=== PATIENT | female | born 1970 | race Caucasian/White ===

== ENCOUNTER → 2017-01-30 | Outpatient (CLI) | payer OTHER ==
--- NOTE | 2017-01-31 08:07 | US ---
EXAMINATION TYPE: US thyroid st tissue head/neck DATE OF EXAM: 01/30/2017 COMPARISON: 05/23/2016 CLINICAL HISTORY: E04.1 Thyroid nodule. Patient stated feels right neck thyroid enlargement with pres sure/choking sensation. GLAND SIZE: Right Lobe: 6.0 x 4.1 x 3.3 cm Overall Parenchyma: heterogenous Left Lobe: 4.9 x 1.6 x 1.3 cm Overall Parenchyma: homogeneous Isthmus Thickness: 0.3 cm NODULES RIGHT: # of nodules measured on right: 1 1. 5.2 x 3.9 x 3.2 cm echogenic mixed nodule at the mid pole with well-defined margins. This nodule is wider than tall and shows intranodular vascularity. Prior size: 5.0 x 2.8 x 3.5 cm LEFT: # of nodules measured on left: 2 1. 0.5 X 0.3 x 0.3 cm hypoechoic mixed nodule at the lower pole with well-defined margins. This no dule is wide as is tall. Prior size: 0.5 x 0.3 x 0.3 cm 2. 0.6 X 0.5 x 0.5 cm hypoechoic mixed nodule at the mid pole with well-defined margins. This nodule is wide as is tall and shows intranodular vascularity. Prior size: 0.6 x 0.5 x 0.5 cm ISTHMUS: # of nodules measured in the isthmus: 1 1. 0.9 X 0.7 x 0.5 cm isoechoic solid nodule at the right mid pole with well-defined margins. Thi s nodule is wider than tall and shows no intranodular vascularity. Prior size: 0.5 x 0.7 x 0.5 cm Bilateral neck scanned, no evidence of lymphadenopathy. IMPRESSION: Multinodular thyroid. Thyromegaly and findings suggestive of thyroiditis. Single nodules increased in size from the previous exam within the isthmus now measuring 9 mm. Dominant nodule right lobe measur ing 5.2 cm also slightly increased in size.
== END ==
LOC: RADUSWWP 16:48
PROVIDERS: ATTEND Otolaryngology
DX: E04.2 Nontoxic multinodular goiter (principal)
CPT/HCPCS: 76536

== ENCOUNTER → 2017-08-14 | Outpatient (CLI) | payer OTHER ==
--- NOTE | 2017-08-14 13:36 | US ---
EXAMINATION TYPE: US thyroid st tissue head/neck DATE OF EXAM: 08/14/2017 COMPARISON: Prior thyroid ultrasound January 30, 2017 CLINICAL HISTORY: E04.1 thyroid nodule. GLAND SIZE: Right Lobe: 6.3 x 3.7 x 4.7 cm Overall Parenchyma: heterogenous Left Lobe: 5.1x 1.41.6 cm Overall Parenchyma: homogeneous Isthmus Thickness: 0.5 cm NODULES RIGHT: # of nodules measured on right: 1 1. 5.6 X 3.4 x 4.2 cm isoechoic mixed nodule at the mid pole with well-defined margins. This nodul e is wider than tall and shows intranodular vascularity. Prior size: 5.2 x 3.9 x 3.2 cm LEFT: # of nodules measured on left: 2 1. 0.6 X 0.4 x 0.5 cm hypoechoic solid nodule at the mid pole with well-defined margins. This nodu le is wider than tall and shows intranodular vascularity. Prior size: 0.6 x 0.5 x 0.5 cm 2. 0.5 X 0.4 x 0.3 cm isoechoic solid nodule at the lower pole with well-defined margins. This nodu le is taller than wide and shows intranodular vascularity. Prior size: 0.5 x 0.3 x 0.3 cm ISTHMUS: # of nodules measured in the isthmus: 1 1. 1.0 X 0.5 x 0.8 cm isoechoic solid nodule at the mid pole with well-defined margins. This nodul e is wider than tall and shows intranodular vascularity. Prior size: 0.9 x 0.7 x 0.5 cm Bilateral neck scanned, no evidence of lymphadenopathy. There is redemonstration of large right thyroid with dominant solid and cystic 5.6 cm nodule that has been sampled in the past. A few smaller nodules in isthmus and left thyroid are redemonstrated witho ut significant interval change. IMPRESSION: Overall stable findings, dominant mixed nodule which has been biopsied in right thyroid redemonstrate d, no new greater than 1 cm solid or cystic nodules are seen.
== END | disposition home or self-care (01) ==
LOC: RADUSWWP 12:02
PROVIDERS: ATTEND Otolaryngology
DX: E04.2 Nontoxic multinodular goiter (principal)
CPT/HCPCS: 76536

== ENCOUNTER → 2018-07-02 | Outpatient (CLI) | payer BC ==
--- NOTE | 2018-07-05 07:03 | MM ---
Reason for exam: screening (asymptomatic). Last mammogram was performed 1 year and 1 month ago. History: Patient had first child at age 34. Family history of breast cancer in paternal grandmother. Retro-pectoral saline implants in both breasts, 1996. Taking hormonal contraceptives for 19 years beginning at age 15. Physical Findings: A clinical breast exam by your physician is recommended on an annual basis and results should be correlated with mammographic findings. MG Screening Mammo Implant/CAD Bilateral CC, MLO, and ID view(s) were taken. Prior study comparison: June 12, 2017, bilateral MG screening mammo implant/CAD. June 06, 2016, bilateral MG screening mammo implant/CAD. There are scattered fibroglandular densities. No suspicious calcifications are seen. Bilateral implants are intact. No significant changes when compared with prior studies. ASSESSMENT: Benign, BI-RAD 2 RECOMMENDATION: Routine screening mammogram of both breasts in 1 year.
== END | disposition home or self-care (01) ==
LOC: RADMAMWWP 12:34
PROVIDERS: ATTEND Family Medicine
DX: Z12.31 Encounter for screening mammogram for malignant neoplasm of breast (principal); Z80.3 Family history of malignant neoplasm of breast; Z98.82 Breast implant status
CPT/HCPCS: 77067

== ENCOUNTER → 2018-09-10 | Outpatient (CLI) | payer BC ==
--- NOTE | 2018-09-10 14:38 | US ---
EXAMINATION TYPE: US thyroid st tissue head/neck DATE OF EXAM: 09/10/2018 COMPARISON: US CLINICAL HISTORY: E04.1 Thyroid nodule. F/U previous GLAND SIZE: Right Lobe: 6.5 x 3.3 x 4.2 cm Overall Parenchyma: heterogenous Left Lobe: 4.7 x 1.4 x 1.3 cm Overall Parenchyma: homogeneous Isthmus Thickness: 0.3 cm NODULES RIGHT: # of nodules measured on right: 1 1. 5.6 X 3.1 x 3.9 cm mixed nodule at the mid pole with well-defined margins; This nodule is wider than tall and shows intranodular vascularity. Prior size: 5.6 x 3.4 x 4.2 cm LEFT: # of nodules measured on left: 2 1. 0.6 X 0.5 x 0.5 cm hypoechoic solid nodule at the mid pole with well-defined margins; This nodul e is wider than tall and shows intranodular vascularity. Prior size: 0.6 x 0.4 x 0.5 cm 2. 0.5 X 0.5 x 0.3 cm hypoechoic solid nodule at the mid pole with well-defined margins; This nodul e is wider than tall and shows intranodular vascularity. Prior size: 0.5 x 0.4 x 0.3 cm ISTHMUS: # of nodules measured in the isthmus: 1 1. 1.2 X 0.6 x 0.9 cm isoechoic solid nodule with well-defined margins; This nodule is wider than tall and shows intranodular vascularity. Prior size: 1.0 x 0.5 x 0.8 cm Bilateral neck scanned, no evidence of lymphadenopathy. Stable nodules. IMPRESSION: 1. Stable complex thyroid nodules.
== END | disposition home or self-care (01) ==
LOC: RADUSWWP 14:07
PROVIDERS: ATTEND Otolaryngology
DX: E04.2 Nontoxic multinodular goiter (principal)
CPT/HCPCS: 76536

== ENCOUNTER → 2019-09-02 | Outpatient (CLI) | payer OTHER ==
--- NOTE | 2019-09-05 09:49 | MM ---
Reason for exam: screening (asymptomatic). Last mammogram was performed 1 year and 2 months ago. History: Patient had first child at age 34. Family history of breast cancer in paternal grandmother. Retro-pectoral saline implants in both breasts, 1996. Taking hormonal contraceptives for 19 years beginning at age 15. Physical Findings: A clinical breast exam by your physician is recommended on an annual basis and results should be correlated with mammographic findings. MG Screening Mammo Implant/CAD Bilateral CC, MLO, and ID view(s) were taken. Prior study comparison: July 02, 2018, bilateral MG screening mammo implant/CAD. June 12, 2017, bilateral MG screening mammo implant/CAD. There are scattered fibroglandular densities. Bilateral implants are intact. No significant changes when compared with prior studies. ASSESSMENT: Benign, BI-RAD 2 RECOMMENDATION: Routine screening mammogram of both breasts in 1 year.
== END | disposition home or self-care (01) ==
LOC: RADMAMWWP 09:12
PROVIDERS: ATTEND Family Medicine
DX: Z12.31 Encounter for screening mammogram for malignant neoplasm of breast (principal); Z80.3 Family history of malignant neoplasm of breast; Z98.82 Breast implant status
CPT/HCPCS: 77067

== ENCOUNTER → 2019-09-23 | Outpatient (CLI) | payer OTHER ==
--- NOTE | 2019-09-23 12:14 | US ---
EXAMINATION TYPE: US thyroid st tissue head/neck DATE OF EXAM: 09/23/2019 COMPARISON: Prior ultrasound 09/10/2018 CLINICAL HISTORY: E04.1 thyroid nodule. GLAND SIZE: Right Lobe: 6.5 x 3.7 x 3.9 cm Overall Parenchyma: homogenous Left Lobe: 5.2 x 1.4 x 1.5 cm Overall Parenchyma: homogeneous Isthmus Thickness: 0.7 cm NODULES RIGHT: # of nodules measured on right: 1 1. 5.6 X 3.2 x 3.9 cm isoechoic mixed nodule at the mid pole with well-defined margins. This nodul e is wider than tall and shows intranodular vascularity. Prior size: 5.6 x 3.1 x 3.9 cm LEFT: # of nodules measured on left: 2 1. 0.6 X 0.5 x 0.5 cm hypoechoic solid nodule at the mid pole with well-defined margins. This nodu le is wider than tall and shows intranodular vascularity. Prior size: 0.6 x 0.5 x 0.5 cm 2. 0.5 X 0.3 x 0.5 cm hypoechoic solid nodule at the mid pole with well-defined margins. This nodul e is wider than tall and shows intranodular vascularity. Prior size: 0.5 x 0.5 x 0.3 cm ISTHMUS: # of nodules measured in the isthmus: 1 1. 1.1 X 0.7 x 0.9 cm isoechoic solid nodule at the mid pole with well-defined margins. This nodul e is wider than tall and shows intranodular vascularity. Prior size: 1.2 x 0.6 x 0.9 cm Bilateral neck scanned, no evidence of lymphadenopathy. IMPRESSION: Dominant nodular focus within the right lobe of the gland shows predominantly cystic appearance as on prior. Solid nodule within the isthmus measures 1.1 cm. Subcentimeter left lobe thyroid nodules. Exa m is essentially stable.
== END | disposition home or self-care (01) ==
LOC: RADUSWWP 08:50
PROVIDERS: ATTEND Otolaryngology
DX: E04.2 Nontoxic multinodular goiter (principal)
CPT/HCPCS: 76536

== ENCOUNTER → 2020-05-03 | Outpatient (CLI) | payer OTHER ==
--- NOTE | 2020-05-04 08:50 | US ---
EXAMINATION TYPE: US thyroid st tissue head/neck DATE OF EXAM: 05/03/2020 COMPARISON: CLINICAL HISTORY: E04.1 Thyroid Nodule. FU thyroid nodules. No thyroid meds. GLAND SIZE: Right Lobe: 5.8 x 4.1 x 3.2 cm Overall Parenchyma: homogenous Left Lobe: 4.7 x 1.6 x 1.3 cm Overall Parenchyma: homogeneous Isthmus Thickness: 0.8 cm NODULES RIGHT: # of nodules measured on right: 1 1. 5.5 X 3.6 x 3.0 cm mixed nodule at the mid pole with well-defined margins. This nodule is wider than tall and shows intranodular vascularity. Large amount of cystic spaces within the right thyroid nodule are again noted Prior size: 5.6 x 3.2 x 3.9 cm LEFT: # of nodules measured on left: 2 1. 0.6 X 0.6 x 0.5 cm hypoechoic nodule at the mid pole with well-defined margins. This nodule is wider than tall and shows intranodular vascularity. Prior size: 0.6 x 0.5 x 0.5 cm 2. 0.5 X 0.4 x 0.4 cm hypoechoic nodule at the mid pole with well-defined margins. This nodule is w ider as tall and shows intranodular vascularity. Prior size: 0.5 x 0.5 x 0.3 cm ISTHMUS: # of nodules measured in the isthmus: 1 1. 1.2 X 1.0 x 0.7 cm mixed nodule with well-defined margins. This nodule is wider than tall and shows intranodular vascularity. Prior size: 1.1 x 0.7 x 0.9 cm Bilateral neck scanned, no evidence of lymphadenopathy. IMPRESSION: Right thyroid nodule TR 2, not suspicious. Subcentimeter left-sided thyroid nodules. Isthmus nodule T R 3, mildly suspicious, follow-up to assess for stability
== END | disposition home or self-care (01) ==
LOC: RADUSWWP 15:27
PROVIDERS: ATTEND Otolaryngology
DX: E04.1 Nontoxic single thyroid nodule (principal)
CPT/HCPCS: 76536

== ENCOUNTER 2020-08-15 18:18 | Emergency (ER) | payer OTHER ==
[2020-08-15 18:34] VITALS: PULSE 77; RESP 18
[2020-08-15] MEDS ORDERED: PROPARACAINE 0.5% OPHTH DROPS 15 ML BTL LEFT EYE STA (19:14)
--- NOTE | 2020-08-15 19:52 | ED ---
Eye Problem HPI - General Chief complaint: Eye Problems Stated complaint: Eye Problems Time Seen by Provider: 08/15/20 19:03 Source: patient Mode of arrival: ambulatory Limitations: no limitations - History of Present Illness Initial comments: 50-year-old female patient presents to the emergency department today for evaluation of visual disturbance to the left eye. Patient states starting on Thursday she developed a cloudiness over her vision. States her couple days she had 2 areas that appeared to be like lightning bolts. States this lasted for a couple days and resolve that she developed floaters in her vision. States it looks like tiny gnats flying around the room. She denies any pain or pressure to the eye. Denies history of hypertension, stroke, or diabetes. Denies ever having similar type symptoms. Patient denies any recent rash, fever, chills, cough, shortness of breath, chest pain, abdominal pain, nausea, vomiting, diarrhea, constipation, back pain, numbness, tingling, dizziness, weakness, hematuria, dysuria, urinary urgency, urinary frequency, or any other complaints. - Related Data Home Medications Medication Instructions Recorded Confirmed Non Formulary Drug 1 each PO ONCE 11/10/14 11/17/14 medroxyPROGESTERone [Depo-Provera] 150 mg IM ONCE 11/10/14 11/17/14 Allergies Allergy/AdvReac Type Severity Reaction Status Date / Time No Known Allergies Allergy Verified 08/15/20 18:34 Review of Systems ROS Statement: Those systems with pertinent positive or pertinent negative responses have been documented in the HPI. ROS Other: All systems not noted in ROS Statement are negative. Past Medical History Past Medical History: Thyroid Disorder Additional Past Medical History / Comment(s): Thyroid nodules History of Any Multi-Drug Resistant Organisms: None Reported Past Surgical History: Section Additional Past Surgical History / Comment(s): 2003 & 2006 Past Anesthesia/Blood Transfusion Reactions: No Reported Reaction Past Psychological History: Anxiety Smoking Status: Never smoker Past Alcohol Use History: None Reported Past Drug Use History: None Reported - Past Family History Father Family Medical History: No Reported History General Exam Limitations: no limitations General appearance: alert, in no apparent distress, other (Physical well- developed, well-nourished adult female patient in no acute distress. Vital signs upon presentation are temperature 98.3F, pulse 77, respirations 18, blood pressure 121/79, pulse ox 98% on room air.) Eye exam: Present: normal appearance, PERRL, EOMI. Absent: scleral icterus, conjunctival injection, nystagmus, periorbital swelling Expanded Eyelids: Normal Inspection: Right Pupils: Regular, Round: Left, Reactive: Left Sclera/Conjunctival: Normal Inspection: Left Anterior chamber: Normal Inspection: Left Posterior chamber: Normal Inspection: Left Visual acuity (R) = 20/: 30 Visual acuity (L) = 20/: 25 With correction: No IOP (L) in mmH IOP measured with: Tonopen ENT exam: Present: normal exam, normal oropharynx, mucous membranes moist Respiratory exam: Present: normal lung sounds bilaterally. Absent: respiratory distress, wheezes, rales, rhonchi, stridor Cardiovascular Exam: Present: regular rate, normal rhythm, normal heart sounds. Absent: systolic murmur, diastolic murmur, rubs, gallop, clicks Neurological exam: Present: alert, oriented X3, CN II-XII intact Psychiatric exam: Present: normal affect, normal mood Skin exam: Present: warm, dry, intact, normal color. Absent: rash Course Vital Signs 08/15/20 18:31 Temperature 98.3 F Pulse Rate 77 Respiratory 18 Rate Blood Pressure 121/79 O2 Sat by Pulse 98 Oximetry Medical Decision Making - Medical Decision Making 50-year-old female patient presented to the emergency department today for evaluation of visual disturbance of the left eye. She reported flashes and floaters. Physical examination was unremarkable. I did perform limited funduscopic examination of the left thigh which appeared unremarkable. Pressure to the left eye was between 10 and 12. Visual acuity is unremarkable. I did discuss the case with on-call ophthalmology Dr. Deras who will be able to follow up with patient in the office on Thursday. Patient was given strict return parameters to include specifically any acute change in her vision, a curtain over her vision, or snow globe effect type floaters. She agrees with this plan. Disposition Clinical Impression: Floaters in visual field Disposition: HOME SELF-CARE Condition: Good Instructions (If sedation given, give patient instructions): Blurred Vision (ED), Visual Floaters (ED) Additional Instructions: Called the psychologist developmental's office first thing Thursday morning for an appointment. Return to the emergency department immediately if he develop loss of vision, occurred vision, or sudden increase in the floaters. Return for any other new, worsening, or concerning symptoms. Is patient prescribed a controlled substance at d/c from ED?: No Referrals: Ferny Layton Jr, DO [Primary Care Provider] - 1-2 days Chanel Deras MD [STAFF PHYSICIAN] - 1-2 days Time of Disposition: 19:52
[2020-08-15 20:10] VITALS: BP 121/70; TEMP 98.2
== END 2020-08-15 20:00 | disposition home or self-care (01) ==
LOC: EC 18:18
DX: H43.392 Other vitreous opacities, left eye (principal); Z79.3 Long term (current) use of hormonal contraceptives
CPT/HCPCS: 99283

== ENCOUNTER → 2021-12-12 | Outpatient (CLI) | payer OTHER ==
--- NOTE | 2021-12-12 07:52 | US ---
EXAMINATION TYPE: US thyroid st tissue head/neck DATE OF EXAM: 12/12/2021 COMPARISON: Prior ultrasound May 03, 2020 CLINICAL HISTORY: E04.1 Thyroid nodule. Follow up thyroid nodules, tightness right neck GLAND SIZE: Right Lobe: 6.5 x 3.6 x 4.4 cm Overall Parenchyma: homogenous Left Lobe: 4.7 x 1.7 x 1.5 cm Overall Parenchyma: homogeneous Isthmus Thickness: 0.7 cm NODULES RIGHT: # of nodules measured on right: 1 1. 5.8 X 3.2 x 3.7 cm, mid , spongiform, hypoechoic nodule, which is wider than tall, with smooth m argins, without echogenic foci. Prior size: 5.5 x 3.0 x 3.6 cm LEFT: # of nodules measured on left: 2 1. 0.6 X 0.5 x 0.6 cm, mid , solid or almost completely solid, hypoechoic nodule, which is wider th an tall, with smooth margins, without echogenic foci. Prior size: 0.6 x 0.5 x 0.6 cm 2. 0.7 X 0.5 x 0.6 cm, mid , mixed cystic and solid, hypoechoic nodule, which is wider than tall, with smooth margins, without echogenic foci. Prior size: 0.5 x 0.4 x 0.4 cm ISTHMUS: # of nodules measured in the isthmus: 1 1. 1.4 X 0.7 x 1.1 cm mixed cystic and solid nodule, which is wider than tall, with smooth margins, without echogenic foci. Prior size: 1.2 x 0.7 x 1.0 cm Bilateral neck scanned, no evidence of lymphadenopathy. Fairly homogeneous thyroid with asymmetric right-sided enlargement due to dominant mixed right-sided nodule. Overall nodules grossly stable from prior. IMPRESSION: As above. No new suspicious nodules seen.
== END | disposition home or self-care (01) ==
LOC: RADUSWWP 06:59
PROVIDERS: ATTEND Otolaryngology
DX: E04.1 Nontoxic single thyroid nodule (principal)
CPT/HCPCS: 76536

== ENCOUNTER → 2022-01-09 | Outpatient (CLI) | payer OTHER ==
--- NOTE | 2022-01-09 14:53 | MM ---
Reason for Exam: Screening (asymptomatic). Last mammogram was performed 2 year(s) and 4 month(s) ago. Patient History: Menarche at age 10. First Full-Term at age 34. Late child-bearing (after 30). Currently using Hormonal Contraceptives, beginning at age 15 for 19 years. 1996, Bilateral Implants. Paternal grandmother had breast cancer. Risk Values: Lisa 5 year model risk: 1.5%. NCI Lifetime model risk: 11.6%. Film Views: Bilateral CC views were taken. Bilateral MLO views were taken. Prior Study Comparison: 06/12/2017 Bilateral Screening Mammogram, [facility]. 07/02/2018 Bilateral Screening Mammogram, [facility]. 09/02/2019 Bilateral Screening Mammogram, [facility]. Tissue Density: There are scattered fibroglandular densities. Findings: Analyzed By CAD. There is no suspicious group of microcalcifications or new suspicious mass in either breast. Bilateral breast prostheses are present. Overall Assessment: Benign, BI-RAD 2 Management: Screening Mammogram of both breasts in 1 year. A clinical breast exam by your physician is recommended on an annual basis and results should be correlated with mammographic findings. Electronically signed and approved by: Wilfredo Bloom D.O. Radiologis
== END | disposition home or self-care (01) ==
LOC: RADMAMWWP 07:30
PROVIDERS: ATTEND Family Medicine
DX: Z00.00 Encounter for general adult medical examination without abnormal findings (principal); Z12.31 Encounter for screening mammogram for malignant neoplasm of breast; Z80.3 Family history of malignant neoplasm of breast
CPT/HCPCS: 77067

== ENCOUNTER → 2023-02-10 | Outpatient (CLI) | payer OTHER ==
--- NOTE | 2023-02-10 09:50 | US ---
EXAMINATION TYPE: US thyroid st tissue head/neck DATE OF EXAM: 02/10/2023 COMPARISON: US 12/12/2021 CLINICAL INDICATION: Female, 52 years old with history of E04.1 THYROID NODULE; F/U nodules GLAND SIZE: Right Lobe: 7.3 x 3.5 x 4.4 cm Overall Parenchyma: heterogenous Left Lobe: 5.1 x 1.3 x 1.5 cm Overall Parenchyma: homogeneous Isthmus Thickness: 0.3 cm NODULES RIGHT: # of nodules measured on right: 1 1. 6.1 X 2.9 x 4.1 cm, mid, hypoechoic Prior size: 5.8 x 3.2 x 3.7 cm TIRADS Score: 0 TIRADS Category 1: Benign Composition: Spongiform (0 points). Recommendation: No FNA LEFT: # of nodules measured on left: 2 1. 0.6 X 0.5 x 0.5 cm, mid, Prior size: 0.6 x 0.5 x 0.6 cm TIRADS Score: 5 TIRADS Category 4: Moderately Suspicious Composition: Solid or almost completely solid (2 points). Echogenicity: Hypoechoic (2 points). Shape: Wider than tall (0 points). Margin: Smooth (0 points). Echogenic foci: Macrocalcifications (1 point) Recommendation: If >1.5cm: FNA; If >1cm: Follow up at 1,2, 3,5 years 2. 0.7 X 0.5 x 0.6 cm, mid lateral, Prior size: 0.7 x 0.5 x 0.6 cm TIRADS Score: 4 TIRADS Category 4: Moderately Suspicious Composition: Solid or almost completely solid (2 points). Echogenicity: Hypoechoic (2 points). Shape: Wider than tall (0 points). Margin: Smooth (0 points). Echogenic foci: None or large comet-tail artifacts (0 points) Recommendation: If >1.5cm: FNA; If >1cm: Follow up at 1,2, 3,5 years ISTHMUS: # of nodules measured in the isthmus: 1 1. 1.4 X 0.5 x 1.2 cm Prior size: 1.4 x 0.7 x 1.1 cm TIRADS Score: 4 TIRADS Category 4: Moderately Suspicious Composition: Solid or almost completely solid (2 points). Echogenicity: Hypoechoic (2 points). Shape: Wider than tall (0 points). Margin: Smooth (0 points). Echogenic foci: None or large comet-tail artifacts (0 points) Recommendation: If >1.5cm: FNA; If >1cm: Follow up at 1,2, 3,5 years Bilateral neck scanned, no evidence of lymphadenopathy. Stable nodules. IMPRESSION: Stable thyroid nodules that meet criteria for follow-up.
== END | disposition home or self-care (01) ==
LOC: RADUSWWP 08:38
PROVIDERS: ATTEND Otolaryngology
DX: E04.2 Nontoxic multinodular goiter (principal)
CPT/HCPCS: 76536

== ENCOUNTER → 2024-05-18 | Outpatient (CLI) | payer OTHER ==
--- NOTE | 2024-05-19 10:50 | BD ---
EXAMINATION TYPE: Axial Bone Density DATE OF EXAM: 05/18/2024 CLINICAL HISTORY: 53 years old Female. ICD-10 CODE: Z78.0 Postmenopausal Height: 64" Weight: 142lbs FRAX RISK QUESTIONS: Alcohol (3 or more units per day): No Family History (Parent hip fracture): No Glucocorticoids (More than 3mos): No (Ex: prednisone, prednisolone, methylprednisolone, dexamethasone, and hydrocortisone). History of Fracture in Adulthood: No Secondary Osteoporosis: 1. Type 1 Diabetes: No 2. Hyperthyroidism: No 3. Menopause before 45: No 4. Malnutrition: No 5. Chronic liver disease: No Rheumatoid Arthritis: No Current Tobacco Use: No RISK FACTORS HISTORY OF: Hip Fracture (Right/Left): No Spine Fracture: No History of Wrist Fracture: No Surgery to Spine/Hip(right/left)/Wrist (right/left): No MEDICATIONS: Thyroid Medications: No Osteoporosis Medications: No EXAM MEASUREMENTS: Bone mineral densitometry was performed using the [employer]. Bone mineral density as measured about the Lumbar spine is: ----- L1-L4(G/cm2): 1.129 T Score Values are as follows: ----- L1: -0.5 ----- L2: -0.7 ----- L3: -0.1 ----- L4: -0.6 ----- L1-L4: -0.4 Z Score Values are as follows: ----- L1: 0.4 ----- L2: 0.1 ----- L3: 0.8 ----- L4: 0.3 ----- L1-L4: 0.5 Bone mineral density has: decreased -13.8% since study of: 12/01/2014 Bone mineral density about the R hip (g/cm2): 0.852 Bone mineral density about the L hip (g/cm2): 0.915 T Score values are as follows: -----R Neck: -1.6 -----L Neck: -1.0 -----R Total: -1.2 -----L Total: -0.7 Z Score values are as follows: -----R Neck: -0.6 -----L Neck: 0.0 -----R Total: -0.5 -----L Total: 0.0 Bone mineral density has: decreased -14.7% since study of: 12/01/2014 FRAX%s: The graph provided illustrates a 7.2% chance for a major osteoporotic fx and a 0.7% chance fo r the hips probability for fx in 10 years time. IMPRESSION: Osteopenia (T Score between -2.5 and -1). There is slightly increased risk of fracture and the patient may be considered for treatment. Re-Screen 2-5 years. NOTE: T-SCORE=SD OF THE YOUNG ADULT MEAN. [facility], , 05/19/2024 10:48 AM
--- NOTE | 2024-05-19 14:19 | MM ---
Reason for Exam: Screening (asymptomatic). Last mammogram was performed 1 year(s) and 3 month(s) ago. Patient History: Menarche at age 10. First Full-Term at age 34. Late child-bearing (after 30). Postmenopausal. Hormonal Contraceptives, starting at age 15 for 19 years. 2023, Bilateral Implants. 1996, Bilateral Implants. Paternal grandmother had breast cancer, age 70. Risk Values: Lisa 5 year model risk: 1.6%. NCI Lifetime model risk: 11.2%. Prior Study Comparison: 09/02/2019 Bilateral Screening Mammogram, [facility]. 01/09/2022 Bilateral MG screening mammo implant/CAD, [facility]. 03/05/2023 Bilateral MG 3D screen mammo imp/cad., [facility]. Tissue Density: There are scattered areas of fibroglandular density. Findings: Analyzed By CAD. There is no suspicious group of microcalcifications or new suspicious mass in either breast. Overall Assessment: Negative, BI-RAD 1 Management: Screening Mammogram of both breasts in 1 year. . Patient should continue monthly self-breast exams. A clinical breast exam by your physician is recommended on an annual basis. This exam should not preclude additional follow-up of suspicious palpable abnormalities. Note on Lisa scores and lifetime risk: 1. A Lisa score greater than 3% is considered moderate risk. If this is the case, consider specialist referral to assess eligibility for a risk reducing agent. 2. If overall lifetime risk for the development of breast cancer is 20% or higher, the patient may qualify for future screening with alternating mammogram and breast MRI. [facility], , 05/19/2024 2:15 PM. Electronically signed and approved by: Guillermo Crews M.D. Radiologis
== END | disposition home or self-care (01) ==
LOC: RADMAMWWP 15:16
PROVIDERS: ATTEND Family Medicine
CPT/HCPCS: 77063; 77067; 77080